=== PATIENT | female | born 1950 | race African-American/Black ===

== ENCOUNTER 2021-09-29 12:17 | Inpatient (IN) | payer MEDICARE, MEDICAID ==
[~2021-09-29 12:17] MED LIST: Iopamidol-370 76% 500 ML 1 ML ONE
[2021-09-29 13:30] LABS: #Lymphocytes 0.9 thou/uL (1.20-3.40); #Monocytes 0.8 thou/uL (0.11-0.59); #Neutrophils 3.9 thou/uL (1.40-6.50); %Basophils 0.2 % (0.0-1.0); %Eosinophils 0.2 % (0.0-10.0); %Lymphocytes 16.4 % (21.0-51.0); %Monocytes 13.5 % (0.0-10.0); %Neutrophils 69.7 % (42.0-75.0); Hemoglobin 11.4 g/dL (12.0-16.0); Mean Corpuscular HGB CONC 32.1 g/dL (32.0-36.0); Mean Corpuscular Hemoglobin 29.3 pg (27.0-31.0); Mean Corpuscular Volume 91.4 fL (78.0-98.0); Mean Platelet Volume 6.1 fL (7.4-10.4); Platelet Count 411 thou/uL (130-400); RBC Distribution Width 11.8 % (11.5-14.5); Red Blood Cell (RBC) Count 3.89 mill/uL (4.20-5.40); White Blood Cell (WBC) Count 5.5 thou/uL (4.8-10.8)
[2021-09-29] MEDS ORDERED: Ondansetron PF 4 MG/2 ML Vial ONE ×2 (13:47→19:56)
[2021-09-29 13:48] LABS: ALT (SGPT) 7 U/L (8-55); AST (SGOT) 11 U/L (5-34); Alkaline Phosphatase 67 U/L (40-110); Anion Gap 21 mmol/L (10-20); BUN (Urea Nitrogen) 47 mg/dL (9.8-20.1); Bilirubin, Total 0.6 mg/dL (0.2-1.2); Calc. Creatinine Clearance 0 mL/min (70-130); Calcium 10.2 mg/dL (7.8-10.44); Carbon Dioxide 28 mmol/L (23-31); Chloride 90 mmol/L (98-107); Estimated GFR 30; Globulin 3.7 g/dL (2.4-3.5); Glucose 155 mg/dL (83-110); Lipase 41 U/L (8-78); Potassium 4.5 mmol/L (3.5-5.1); Protein, Total 7.7 g/dL (5.8-8.1); Sodium 134 mmol/L (136-145)
[2021-09-29] MEDS ORDERED: Acetaminophen 500 MG TAB ONE (13:54)
[2021-09-29] MEDS ORDERED: Nitroglycerin 2% Ointment 1 INCH/1 GM Packet ONE (13:54)
[2021-09-29] MEDS ORDERED: Ketorolac Tromethamine 30 MG/ML VIAL ONE (13:54)
[2021-09-29] MEDS ORDERED: Piperacillin/Tazobactam 4.5 GM VIAL ONE (15:33)
[2021-09-29] MEDS ORDERED: Ondansetron PF 4 MG/2 ML Vial IVP PRN (15:43)
[2021-09-29] MEDS ORDERED: Acetaminophen 650 MG Suppository PR PRN (15:43)
[2021-09-29] MEDS ORDERED: Sodium Chloride 0.9% 1,000 ML IV SCH ×2 (15:45→17:00)
[2021-09-29 16:19] LABS: Bacteria/HPF None Seen HPF (None Seen); Bilirubin Negative (Negative); Blood, Urine Negative (Negative); Clarity Turbid (Clear); Glucose, Urine (Dipstick) Normal (Negative); Ketone, Urine Negative (Negative); Leukocyte 25 Leu/uL (Negative); Nitrite Negative (Negative); Protein, Urine (Dipstick) 50 mg/dL (Neg-Trace); Specific Gravity, Urine 1.037 (1.002-1.036); Squamous Epithelial 21-50 HPF (0-3); pH, Urine 5.5 (5.0-9.0)
[2021-09-29 17:12] LABS: Lactic Acid 2.5 mmol/L (0.5-2.2)
[2021-09-29] MEDS ORDERED: Piperacillin/Tazobactam 4.5 GM in Sodium Chloride 0.9% 100 ML IVPB SCH (18:00)
[2021-09-29] MEDS ORDERED: Ketamine 50 MG/ML (10ML VIAL) ONE (18:47)
[2021-09-29] MEDS ORDERED: fentaNYL Citrate/PF 100 MCG/2 ML SYRINGE ONE (18:47)
[2021-09-29] MEDS ORDERED: HYDROmorphone 2 MG/ML VIAL ONE ×2 (18:48→21:52)
[2021-09-29] MEDS ORDERED: Clindamycin 150 MG CAP PO SCH (19:00)
[2021-09-29] MEDS ORDERED: Bupivacaine 0.25% HCL 30 ML VIAL ONE (19:24)
[2021-09-29] MEDS ORDERED: Lidocaine 1% w/Epinephrine 1:100K 20 ML VIAL ONE (19:24)
[2021-09-29] MEDS ORDERED: SUGAMMADEX SODIUM 200 MG/2 ML VIAL ONE (19:28)
[2021-09-29] MEDS ORDERED: ePHEDrine 50 MG/ML VIAL ONE (19:56)
[2021-09-29] MEDS ORDERED: Vecuronium 10 MG VIAL ONE ×2 (19:56→22:21)
[2021-09-29] MEDS ORDERED: diphenhydrAMINE 50 MG/ML VIAL ONE (19:56)
[2021-09-29] MEDS ORDERED: Phenylephrine 10 MG/ML VIAL ONE ×6 (19:56→22:12)
[2021-09-29] MEDS ORDERED: Dexamethasone 20 MG/5 ML VIAL ONE (19:56)
[2021-09-29] MEDS ORDERED: Lidocaine 1% PF 5 ML VIAL ONE (19:56)
[2021-09-29] MEDS ORDERED: Succinylcholine 200 MG/10 ml SYRINGE FS ONE (19:56)
[2021-09-29] MEDS ORDERED: PROPOFOL 200 MG/20 ML VIAL ONE (19:56)
[2021-09-29] MEDS ORDERED: Rocuronium Bromide 10 MG/ML (10ML VIAL) ONE (19:56)
[2021-09-29] MEDS: Piperacillin/Tazobactam 3.375 GM in Sodium Chloride 0.9% 100 ML IVPB SCH (20:00)
[2021-09-29] MEDS ORDERED: ePHEDrine Sulfate 50 MG/10 ML VIAL ONE ×2 (20:36→21:18)
[2021-09-29] MEDS ORDERED: PHENYLEPHRINE-NS 100 MCG/ML 10 ML SYRINGE ONE (20:54)
[2021-09-29] MEDS ORDERED: Albumin 5% 500 ML ONE (20:59)
[2021-09-29] MEDS: Famotidine/PF 20 mg/2ml Vial SLOW IVP SCH (21:00)
[2021-09-29] MEDS ORDERED: Piperacillin/Tazobactam 3.375 GM VIAL ONE (21:27)
[2021-09-29] MEDS ORDERED: Midazolam HCl 2 mg/2 ml Vial ONE (22:34)
[2021-09-29] MEDS ORDERED: Fentanyl BOLUS 250 ML IVPB PRN (23:00)
[2021-09-29] MEDS ORDERED: DISCONTINUE PREVIOUS NARCOTIC PAIN MEDICATIONS AND BENZODIAZEPINES FS SCH (23:00)
[2021-09-29] MEDS ORDERED: NOREPINEPHRINE 8 MG/250 ML-D5W 250 ML IVPB SCH ×2 (23:00)
[2021-09-29] MEDS ORDERED: Propofol 1,000 MG/100 ML VIAL IV PRN (23:00)
[2021-09-29] MEDS ORDERED: Midazolam HCl 2 mg/2 ml Vial SLOW IVP PRN (23:00)
[2021-09-29] MEDS ORDERED: Morphine 2 MG/ML VIAL SLOW IVP PRN (23:00)
[2021-09-29] MEDS ORDERED: Propofol BOLUS 1,000 MG/100 ML VIAL IV PRN (23:00)
[2021-09-29] MEDS ORDERED: Ventilator Sedation Protocol 1 EACH FS SCH (23:00)
[2021-09-29] MEDS ORDERED: Fentanyl CADD 100 ML IV SCH (23:00)
[2021-09-29 23:36] LABS: #Lymphocytes 0.6 thou/uL (1.20-3.40); #Monocytes 0.2 thou/uL (0.11-0.59); %Basophils 0.3 % (0.0-1.0); %Eosinophils 0.1 % (0.0-10.0); %Lymphocytes 8.7 % (21.0-51.0); %Monocytes 2.6 % (0.0-10.0); %Neutrophils 88.3 % (42.0-75.0); Hemoglobin 9.3 g/dL (12.0-16.0); Mean Corpuscular HGB CONC 32.2 g/dL (32.0-36.0); Mean Corpuscular Hemoglobin 30.3 pg (27.0-31.0); Mean Corpuscular Volume 93.9 fL (78.0-98.0); Mean Platelet Volume 6.2 fL (7.4-10.4); Platelet Count 345 thou/uL (130-400); RBC Distribution Width 11.8 % (11.5-14.5); Red Blood Cell (RBC) Count 3.07 mill/uL (4.20-5.40); White Blood Cell (WBC) Count 6.8 thou/uL (4.8-10.8)
[2021-09-30 00:06] LABS: ALT (SGPT) 36 U/L (8-55); AST (SGOT) 44 U/L (5-34); Albumin 2.9 g/dL (3.4-4.8); Alkaline Phosphatase 58 U/L (40-110); Anion Gap 14 mmol/L (10-20); BUN (Urea Nitrogen) 36 mg/dL (9.8-20.1); Bilirubin, Total 0.7 mg/dL (0.2-1.2); Calc. Creatinine Clearance 0 mL/min (70-130); Calcium 7.5 mg/dL (7.8-10.44); Carbon Dioxide 19 mmol/L (23-31); Chloride 105 mmol/L (98-107); Estimated GFR 47; Globulin 2.9 g/dL (2.4-3.5); Glucose 204 mg/dL (83-110); Magnesium 1.7 mg/dL (1.6-2.6); Phosphorus 4.3 mg/dL (2.3-4.7); Potassium 3.1 mmol/L (3.5-5.1); Protein, Total 5.8 g/dL (5.8-8.1); Sodium 135 mmol/L (136-145)
[2021-09-30] MEDS ORDERED: Electrolyte Replacement Protocol FS PRN (00:45)
[2021-09-30] MEDS ORDERED: Magnesium 2 GM/50 ML(in water) 2 GM in Premix Bag 1 BAG IVPB SCH (01:00)
[2021-09-30] MEDS: Sodium Chloride 0.9% 1,000 ML IV SCH ×3 (01:30→20:56)
[2021-09-30] MEDS: Potassium Chloride 20 MEQ in Premix Bag 1 BAG IVPB SCH ×2 (02:13→04:11)
[2021-09-30] MEDS: Piperacillin/Tazobactam 3.375 GM in Sodium Chloride 0.9% 100 ML IVPB SCH (04:11)
[2021-09-30] MEDS ORDERED: Clindamycin 150 MG CAP PO SCH (06:00)
[2021-09-30 06:36] LABS: #Lymphocytes 0.5 thou/uL (1.20-3.40); #Monocytes 0.4 thou/uL (0.11-0.59); #Neutrophils 3.8 thou/uL (1.40-6.50); %Basophils 0.1 % (0.0-1.0); %Eosinophils 0.3 % (0.0-10.0); %Lymphocytes 10.2 % (21.0-51.0); %Monocytes 8.2 % (0.0-10.0); %Neutrophils 81.2 % (42.0-75.0); Hemoglobin 9.4 g/dL (12.0-16.0); Mean Corpuscular Hemoglobin 30.8 pg (27.0-31.0); Mean Corpuscular Volume 93.2 fL (78.0-98.0); Mean Platelet Volume 6.2 fL (7.4-10.4); Platelet Count 308 thou/uL (130-400); RBC Distribution Width 11.7 % (11.5-14.5); Red Blood Cell (RBC) Count 3.06 mill/uL (4.20-5.40); White Blood Cell (WBC) Count 4.7 thou/uL (4.8-10.8)
[2021-09-30 07:02] LABS: Anion Gap 16 mmol/L (10-20); BUN (Urea Nitrogen) 32 mg/dL (9.8-20.1); Calc. Creatinine Clearance 69 mL/min (70-130); Calcium 7.9 mg/dL (7.8-10.44); Carbon Dioxide 17 mmol/L (23-31); Chloride 105 mmol/L (98-107); Estimated GFR 61; Glucose 174 mg/dL (83-110); Potassium 4.1 mmol/L (3.5-5.1); Sodium 134 mmol/L (136-145)
[2021-09-30 07:06] LABS: Actual Bicarbonate (HCO3a) 18.4 mEq/L (22-28); Base Excess (BEa) -4.9 mEq/L (-2.0 to +3.0); CO2 Tension 28.5 mmHg (35.0-45.0); Calcium, Ionized (arterial) 1.08 mmol/L (1.12-1.30); Carboxyhemoglobin (COHb) 0.3 gm% (0.0-3.0); Hemoglobin (Hb) 10.1 g/dL (12.0-16.0); O2 Tension (PaO2), arterial 256.4 mmHg (> 70.0); Potassium - ABG Lab 3.93 mmol/L (3.70-5.30); pH, Arterial 7.43 (7.35-7.45)
[2021-09-30 07:07] LABS: Puncture Site Arterial Line
[2021-09-30 07:08] LABS: ALV-art Gradient 278.375 mmHg (0-20)
[2021-09-30] MEDS ORDERED: Meropenem 1 GM in Sodium Chloride 0.9% 100 ML IVPB SCH ×2 (08:00→14:00)
[2021-09-30] MEDS ORDERED: Lidocaine 1% (PF) 30 ML VIAL ONE (10:53)
[2021-09-30] MEDS ORDERED: Fentanyl 100 MCG/2 ML VIAL ONE (11:00)
[2021-09-30] MEDS ORDERED: PROPOFOL 0 ML ONE (11:13)
[2021-09-30] MEDS: Meropenem 1 GM in Sodium Chloride 0.9% 100 ML IVPB SCH (17:56)
[2021-09-30] MEDS: Famotidine/PF 20 mg/2ml Vial SLOW IVP SCH (20:56)
[2021-10-01] MEDS: Meropenem 1 GM in Sodium Chloride 0.9% 100 ML IVPB SCH ×3 (00:56→16:34)
[2021-10-01 04:35] LABS: Hemoglobin 11.1 g/dL (12.0-16.0); Mean Corpuscular HGB CONC 29.6 g/dL (32.0-36.0); Mean Corpuscular Hemoglobin 28.4 pg (27.0-31.0); Mean Corpuscular Volume 95.9 fL (78.0-98.0); Mean Platelet Volume 6.8 fL (7.4-10.4); Platelet Count 195 thou/uL (130-400); RBC Distribution Width 12.1 % (11.5-14.5)
[2021-10-01 04:36] LABS: Band 24 % (5-11); Hypochromia SLIGHT = 6-15 cells (100X) (0-5/hpf); Lymphocytes 20 % (21-51); MDiff Complete? YES; Monocytes 6 % (0-10); Neutrophil 50 % (42-75); Platelet Morphology Comment Appears Adequate
[2021-10-01] MEDS: Sodium Chloride 0.9% 1,000 ML IV SCH ×2 (07:00→16:33)
[2021-10-01 08:30] LABS: Anion Gap 14 mmol/L (10-20); BUN (Urea Nitrogen) 28 mg/dL (9.8-20.1); Calc. Creatinine Clearance 79 mL/min (70-130); Calcium 8.2 mg/dL (7.8-10.44); Carbon Dioxide 21 mmol/L (23-31); Chloride 106 mmol/L (98-107); Estimated GFR 72; Glucose 105 mg/dL (83-110); Potassium 4.2 mmol/L (3.5-5.1); Sodium 137 mmol/L (136-145)
[2021-10-01] MEDS ORDERED: Enoxaparin Sodium 30 MG/0.3 ML SYRINGE SC SCH (10:30)
[2021-10-01] MEDS: Famotidine/PF 20 mg/2ml Vial SLOW IVP SCH (20:27)
[2021-10-01] MEDS: Dextrose 5 %-0.45 % NaCl 1,000 ML IV SCH (21:45)
[2021-10-02] MEDS: Meropenem 1 GM in Sodium Chloride 0.9% 100 ML IVPB SCH ×3 (01:45→17:58)
[2021-10-02 07:50] LABS: #Monocytes 0.5 thou/uL (0.11-0.59); #Neutrophils 2.8 thou/uL (1.40-6.50); %Basophils 0.2 % (0.0-1.0); %Lymphocytes 23.2 % (21.0-51.0); %Monocytes 10.9 % (0.0-10.0); %Neutrophils 64.6 % (42.0-75.0); Hemoglobin 9.3 g/dL (12.0-16.0); Mean Corpuscular HGB CONC 32.1 g/dL (32.0-36.0); Mean Corpuscular Hemoglobin 30.7 pg (27.0-31.0); Mean Corpuscular Volume 95.5 fL (78.0-98.0); Mean Platelet Volume 7.2 fL (7.4-10.4); Platelet Count 277 thou/uL (130-400); RBC Distribution Width 11.7 % (11.5-14.5); Red Blood Cell (RBC) Count 3.03 mill/uL (4.20-5.40); White Blood Cell (WBC) Count 4.3 thou/uL (4.8-10.8)
[2021-10-02 07:52] LABS: Anion Gap 14 mmol/L (10-20); BUN (Urea Nitrogen) 21 mg/dL (9.8-20.1); Calc. Creatinine Clearance 100 mL/min (70-130); Carbon Dioxide 19 mmol/L (23-31); Chloride 110 mmol/L (98-107); Estimated GFR 91; Glucose 102 mg/dL (83-110); Potassium 3.8 mmol/L (3.5-5.1); Sodium 139 mmol/L (136-145)
[2021-10-02] MEDS: Dextrose 5 %-0.45 % NaCl 1,000 ML IV SCH ×2 (10:09→17:58)
[2021-10-02] MEDS: Enoxaparin Sodium 30 MG/0.3 ML SYRINGE SC SCH (10:09)
[2021-10-02] MEDS: Famotidine/PF 20 mg/2ml Vial SLOW IVP SCH (22:01)
[2021-10-03] MEDS: Meropenem 1 GM in Sodium Chloride 0.9% 100 ML IVPB SCH ×3 (00:16→17:22)
[2021-10-03] MEDS: Dextrose 5 %-0.45 % NaCl 1,000 ML IV SCH ×2 (03:50→15:26)
[2021-10-03] MEDS: Enoxaparin Sodium 30 MG/0.3 ML SYRINGE SC SCH (09:00)
[2021-10-03 11:16] LABS: #Eosinphils 0.1 thou/uL (0.0-0.7); #Lymphocytes 1.2 thou/uL (1.20-3.40); #Monocytes 0.8 thou/uL (0.11-0.59); #Neutrophils 4.9 thou/uL (1.40-6.50); %Basophils 0.4 % (0.0-1.0); %Eosinophils 1.5 % (0.0-10.0); %Lymphocytes 17.4 % (21.0-51.0); %Monocytes 11.9 % (0.0-10.0); %Neutrophils 68.8 % (42.0-75.0); Hemoglobin 10.1 g/dL (12.0-16.0); Mean Corpuscular HGB CONC 31.7 g/dL (32.0-36.0); Mean Corpuscular Hemoglobin 30.8 pg (27.0-31.0); Mean Corpuscular Volume 97.1 fL (78.0-98.0); Mean Platelet Volume 7.1 fL (7.4-10.4); Platelet Count 299 thou/uL (130-400); RBC Distribution Width 11.9 % (11.5-14.5); Red Blood Cell (RBC) Count 3.28 mill/uL (4.20-5.40); White Blood Cell (WBC) Count 7.1 thou/uL (4.8-10.8)
[2021-10-03 11:35] LABS: Anion Gap 13 mmol/L (10-20); BUN (Urea Nitrogen) 17 mg/dL (9.8-20.1); Calc. Creatinine Clearance 105 mL/min (70-130); Calcium 8.1 mg/dL (7.8-10.44); Carbon Dioxide 22 mmol/L (23-31); Chloride 109 mmol/L (98-107); Estimated GFR 93; Glucose 101 mg/dL (83-110); Potassium 3.6 mmol/L (3.5-5.1); Sodium 140 mmol/L (136-145)
[2021-10-03] MEDS: Famotidine/PF 20 mg/2ml Vial SLOW IVP SCH (21:28)
[2021-10-04] MEDS: Meropenem 1 GM in Sodium Chloride 0.9% 100 ML IVPB SCH ×3 (00:19→17:40)
[2021-10-04] MEDS: Dextrose 5 %-0.45 % NaCl 1,000 ML IV SCH ×2 (00:19→13:47)
[2021-10-04 06:02] LABS: #Eosinphils 0.1 thou/uL (0.0-0.7); #Lymphocytes 1.5 thou/uL (1.20-3.40); #Monocytes 0.9 thou/uL (0.11-0.59); #Neutrophils 4.5 thou/uL (1.40-6.50); %Basophils 0.2 % (0.0-1.0); %Eosinophils 1.9 % (0.0-10.0); %Monocytes 12.6 % (0.0-10.0); %Neutrophils 63.5 % (42.0-75.0); Hemoglobin 9.4 g/dL (12.0-16.0); Mean Corpuscular HGB CONC 31.4 g/dL (32.0-36.0); Mean Corpuscular Hemoglobin 29.9 pg (27.0-31.0); Mean Corpuscular Volume 95.5 fL (78.0-98.0); Mean Platelet Volume 7.4 fL (7.4-10.4); Platelet Count 298 thou/uL (130-400); RBC Distribution Width 11.9 % (11.5-14.5); Red Blood Cell (RBC) Count 3.13 mill/uL (4.20-5.40)
[2021-10-04 06:15] LABS: Anion Gap 13 mmol/L (10-20); BUN (Urea Nitrogen) 17 mg/dL (9.8-20.1); Calc. Creatinine Clearance 100 mL/min (70-130); Calcium 8.1 mg/dL (7.8-10.44); Carbon Dioxide 19 mmol/L (23-31); Chloride 110 mmol/L (98-107); Estimated GFR 91; Glucose 103 mg/dL (83-110); Sodium 138 mmol/L (136-145)
[2021-10-04] MEDS: Enoxaparin Sodium 30 MG/0.3 ML SYRINGE SC SCH (08:38)
[2021-10-04 16:39] VITALS: BMI 31.4
[2021-10-04] MEDS: Famotidine/PF 20 mg/2ml Vial SLOW IVP SCH (20:10)
[2021-10-05] MEDS: Meropenem 1 GM in Sodium Chloride 0.9% 100 ML IVPB SCH ×2 (03:02→05:35)
[2021-10-05] MEDS: Dextrose 5 %-0.45 % NaCl 1,000 ML IV SCH ×2 (03:02→19:23)
[2021-10-05] MEDS ORDERED: Enoxaparin Sodium 40 MG/0.4 ML SYRINGE SC SCH (09:00)
[2021-10-05] MEDS ORDERED: Meropenem 1 GM in Sodium Chloride 0.9% 100 ML IVPB SCH (14:00)
[2021-10-05 14:39] LABS: Actual Bicarbonate (HCO3a) 18.9 mEq/L (22-28); Analyzer IN Cardio OR; Base Excess (BEa) -7.9 mEq/L (-2.0 to +3.0); CO2 Tension 43.9 mmHg (35.0-45.0); Calcium, Ionized (arterial) 1.03 mmol/L (1.12-1.30); Carboxyhemoglobin (COHb) 0.3 gm% (0.0-3.0); O2 Tension (PaO2), arterial 65.4 mmHg (> 70.0); Potassium - ABG Lab 2.98 mmol/L (3.70-5.30)
[2021-10-05 14:41] LABS: Actual Bicarbonate (HCO3a) 19.4 mEq/L (22-28); Analyzer IN Cardio OR; Base Excess (BEa) -8.2 mEq/L (-2.0 to +3.0); CO2 Tension 49.8 mmHg (35.0-45.0); Calcium, Ionized (arterial) 1.03 mmol/L (1.12-1.30); Carboxyhemoglobin (COHb) 0.3 gm% (0.0-3.0); Hemoglobin (Hb) 9.2 g/dL (12.0-16.0); O2 Tension (PaO2), arterial 73.6 mmHg (> 70.0); Potassium - ABG Lab 2.93 mmol/L (3.70-5.30)
[2021-10-05 14:55] LABS: Puncture Site Arterial Line; pH, Arterial 7.25 (7.35-7.45)
[2021-10-05 14:56] LABS: Puncture Site Arterial Line; pH, Arterial 7.21 (7.35-7.45)
[2021-10-05 21:07] VITALS: BP 110/70; TEMP 98.7
== END 2021-10-05 21:30 | disposition home health service (06) | DRG 329 ==
LOC: ERS 12:17 → SURG A 15:17 → CCU 22:13 → SJJU 10-01 18:06
PROVIDERS: ADMIT Internal Medicine; ATTEND Internal Medicine
PROC: 0DB80ZZ Excision of Small Intestine, Open Approach (ICD-10-PCS; principal; 2021-09-29)
PROC: 0DNB4ZZ Release Ileum, Percutaneous Endoscopic Approach (ICD-10-PCS; 2021-09-29)
PROC: 5A1945Z Respiratory Ventilation, 24-96 Consecutive Hours (ICD-10-PCS; 2021-09-29)
PROC: 3E033XZ Introduction of Vasopressor into Peripheral Vein, Percutaneous Approach (ICD-10-PCS; 2021-09-29)
PROC: 0D9670Z Drainage of Stomach with Drainage Device, Via Natural or Artificial Opening (ICD-10-PCS; 2021-09-29)
PROC: 0BCJ8ZZ Extirpation of Matter from Left Lower Lung Lobe, Via Natural or Artificial Opening Endoscopic (ICD-10-PCS; 2021-09-30)
PROC: 0BCC8ZZ Extirpation of Matter from Right Upper Lung Lobe, Via Natural or Artificial Opening Endoscopic (ICD-10-PCS; 2021-09-30)
PROC: 0BCG8ZZ Extirpation of Matter from Left Upper Lung Lobe, Via Natural or Artificial Opening Endoscopic (ICD-10-PCS; 2021-09-30)
PROC: 0BCD8ZZ Extirpation of Matter from Right Middle Lung Lobe, Via Natural or Artificial Opening Endoscopic (ICD-10-PCS; 2021-09-30)
PROC: 0BCF8ZZ Extirpation of Matter from Right Lower Lung Lobe, Via Natural or Artificial Opening Endoscopic (ICD-10-PCS; 2021-09-30)
DX: K56.50 Intestinal adhesions [bands], unspecified as to partial versus complete obstruction (principal); L89.153 Pressure ulcer of sacral region, stage 3; J69.0 Pneumonitis due to inhalation of food and vomit; J96.01 Acute respiratory failure with hypoxia; J98.11 Atelectasis; R47.01 Aphasia; M86.8X7 Other osteomyelitis, ankle and foot; N17.9 Acute kidney failure, unspecified; E44.0 Moderate protein-calorie malnutrition; Z66 Do not resuscitate; Z51.5 Encounter for palliative care; Z20.822 Contact with and (suspected) exposure to COVID-19; K56.2 Volvulus; F03.90 Unspecified dementia, unspecified severity, without behavioral disturbance, psychotic disturbance, mood disturbance, and anxiety; I95.89 Other hypotension; I12.9 Hypertensive chronic kidney disease with stage 1 through stage 4 chronic kidney disease, or unspecified chronic kidney disease; E11.69 Type 2 diabetes mellitus with other specified complication; E03.9 Hypothyroidism, unspecified; D63.1 Anemia in chronic kidney disease; N18.9 Chronic kidney disease, unspecified; E11.22 Type 2 diabetes mellitus with diabetic chronic kidney disease; E11.621 Type 2 diabetes mellitus with foot ulcer; L97.529 Non-pressure chronic ulcer of other part of left foot with unspecified severity; R62.7 Adult failure to thrive; L89.629 Pressure ulcer of left heel, unspecified stage; E11.649 Type 2 diabetes mellitus with hypoglycemia without coma; R22.32 Localized swelling, mass and lump, left upper limb; Z74.01 Bed confinement status; Z68.31 Body mass index [BMI] 31.0-31.9, adult; Z79.899 Other long term (current) drug therapy; Z85.3 Personal history of malignant neoplasm of breast; Z90.11 Acquired absence of right breast and nipple; Z78.1 Physical restraint status; Z79.82 Long term (current) use of aspirin
CPT/HCPCS: 31624; 36415; 36416; 51701; 71045; 74018; 74019; 74177; 80048; 80053; 81003; 81015; 82805; 83605; 83690; 83735; 84100; 84484; 85025; 85652; 86140; 87040; 87070; 87086; 87205; 88307; 93005; 94002; 94003; 96361; 96365; 96375; 97139; C1776; J1100; J1170; J1200; J1650; J1885; J2001; J2185; J2250; J2270; J2370; J2405; J2543; J2704; J3010; J3475; J3480; J3490; J7042; J7050; P9045; Q9967; S0020; S0028; U0003; U0005

== ENCOUNTER 2022-05-06 01:11 | Emergency (ER) | payer MEDICARE, MEDICAID ==
[2022-05-06 02:37] LABS: #Basophils 0.1 thou/uL (0.0-0.2); #Eosinphils 0.1 thou/uL (0.0-0.7); #Lymphocytes 0.8 thou/uL (1.20-3.40); #Monocytes 0.4 thou/uL (0.11-0.59); #Neutrophils 3.3 thou/uL (1.40-6.50); %Basophils 1.1 % (0.0-1.0); %Eosinophils 2.2 % (0.0-10.0); %Lymphocytes 16.8 % (21.0-51.0); %Monocytes 8.8 % (0.0-10.0); Hemoglobin 12.2 g/dL (12.0-16.0); Mean Corpuscular HGB CONC 34.9 g/dL (32.0-36.0); Mean Corpuscular Hemoglobin 32.5 pg (27.0-31.0); Mean Corpuscular Volume 92.9 fl (78.0-98.0); Mean Platelet Volume 6.4 fL (7.4-10.4); Platelet Count 287 10x3/uL (130-400); RBC Distribution Width 11.3 % (11.5-14.5); Red Blood Cell (RBC) Count 3.75 mill/uL (4.20-5.40); White Blood Cell (WBC) Count 4.6 10x3/uL (4.8-10.8)
[2022-05-06 02:59] LABS: ALT (SGPT) 16 U/L (8-55); AST (SGOT) 16 U/L (5-34); Albumin 3.5 g/dL (3.4-4.8); Alkaline Phosphatase 54 U/L (40-110); Anion Gap 13 mmol/L (10-20); BUN (Urea Nitrogen) 11 mg/dL (9.8-20.1); Bilirubin, Total 0.5 mg/dL (0.2-1.2); Calc. Creatinine Clearance 0 mL/min (70-130); Calcium 9.2 mg/dL (7.8-10.44); Carbon Dioxide 24 mmol/L (23-31); Chloride 95 mmol/L (98-107); Estimated GFR 88; Globulin 3.2 g/dL (2.4-3.5); Glucose 104 mg/dL (83-110); Potassium 3.9 mmol/L (3.5-5.1); Protein, Total 6.7 g/dL (5.8-8.1); Sodium 128 mmol/L (136-145)
[2022-05-06 03:12] LABS: Actual Bicarbonate (HCO3v) 27 mEq/L (22-28); Base Excess 2.6 mEq/L (-2.0 to +3.0); Calcium, Ionized (venous) 1.13 mmol/L (1.16-1.32); Chloride (VBG) 93 mmol/L (98-106); Hemoglobin (Hb) 12.6 g/dL (11.7-16.1); Potassium (VBG) 3.84 mmol/L (3.70-5.30); Sodium 130.8 mmol/L (133-146); pH (venous) 7.43 (7.32-7.43)
== END 2022-05-06 05:32 | disposition home or self-care (01) ==
LOC: ERS 01:11
DX: R56.9 Unspecified convulsions (principal); E11.9 Type 2 diabetes mellitus without complications; I10 Essential (primary) hypertension
CPT/HCPCS: 36415; 70450; 71045; 80053; 82140; 82805; 84146; 84443; 85025; 93005

== ENCOUNTER 2022-07-19 20:16 | Inpatient (IN) | payer MEDICARE, MEDICAID ==
[2022-07-19 21:14] LABS: #Basophils 0.1 thou/uL (0.0-0.2); #Lymphocytes 0.9 thou/uL (1.20-3.40); #Monocytes 0.4 thou/uL (0.11-0.59); #Neutrophils 2.9 thou/uL (1.40-6.50); %Basophils 1.4 % (0.0-1.0); %Eosinophils 0.7 % (0.0-10.0); %Lymphocytes 21.5 % (21.0-51.0); %Monocytes 9.4 % (0.0-10.0); Hemoglobin 11.3 g/dL (12.0-16.0); Mean Corpuscular HGB CONC 33.3 g/dL (32.0-36.0); Mean Corpuscular Hemoglobin 30.8 pg (27.0-31.0); Mean Corpuscular Volume 92.3 fl (78.0-98.0); Mean Platelet Volume 6.6 fL (7.4-10.4); Platelet Count 286 10x3/uL (130-400); RBC Distribution Width 11.2 % (11.5-14.5); Red Blood Cell (RBC) Count 3.68 mill/uL (4.20-5.40); White Blood Cell (WBC) Count 4.4 10x3/uL (4.8-10.8)
[2022-07-19 21:35] LABS: Anion Gap 15 mmol/L (10-20); BUN (Urea Nitrogen) 11 mg/dL (9.8-20.1); Calc. Creatinine Clearance 0 mL/min (70-130); Carbon Dioxide 24 mmol/L (23-31); Chloride 96 mmol/L (98-107); Potassium 4.1 mmol/L (3.5-5.1); Sodium 131 mmol/L (136-145)
[2022-07-19 21:36] LABS: ALT (SGPT) 11 U/L (8-55); AST (SGOT) 14 U/L (5-34); Albumin 3.5 g/dL (3.4-4.8); Alkaline Phosphatase 58 U/L (40-110); Bilirubin, Total 0.5 mg/dL (0.2-1.2); CK (CPK) 82 U/L (29-168); Estimated GFR 65; Globulin 3.1 g/dL (2.4-3.5); Glucose 101 mg/dL (83-110); Magnesium 2.4 mg/dL (1.6-2.6); Protein, Total 6.6 g/dL (5.8-8.1)
[2022-07-19] MEDS ORDERED: levETIRAcetam 500 MG/5 ML VIAL ONE (21:59)
[2022-07-19] MEDS ORDERED: LORazepam 2 MG/ML SYR.(CARPUJECT) ONE (21:59)
[2022-07-19 22:24] LABS: Bilirubin Negative (Negative); Blood, Urine 3+ (Negative); Clarity Turbid (Clear); Glucose, Urine (Dipstick) Normal (Negative); Ketone, Urine Negative (Negative); Leukocyte 250 Leu/uL (Negative); Nitrite Negative (Negative); Protein, Urine (Dipstick) Negative (Neg-Trace); Renal Epithelial 0-3 HPF (None Seen); Specific Gravity, Urine 1.008 (1.002-1.036); Urobilinogen Normal mg/dL (Less than 2); WBC/HPF 21-50 HPF (0-3)
[2022-07-19 22:25] LABS: Bacteria/HPF 1+ HPF (None Seen)
[2022-07-19 22:30] LABS: Amphetamine Not Detected (NotDetected); Barbiturates Screen Not Detected (NotDetected); Benzodiazepine Screen Not Detected (NotDetected); Cocaine Metabolite Screen Not Detected (NotDetected); Methadone Not Detected (NotDetected); Methamphetamine Not Detected (NotDetected); Opiate Screen Not Detected (NotDetected); Oxycodone Screen Not Detected (NotDetected); Phencyclidine (PCP) Not Detected (NotDetected); THC/Cannabinoid Screen Not Detected (NotDetected); Tricyclic Screen Not Detected (NotDetected)
[2022-07-19] MEDS ORDERED: hydrALAZINE 20 MG/ML VIAL ONE (22:31)
[2022-07-19] MEDS ORDERED: Lorazepam 2 MG/ML VIAL SLOW IVP PRN (22:53)
[2022-07-19] MEDS ORDERED: Ondansetron ODT 4 MG TAB PO PRN (22:53)
[2022-07-19] MEDS ORDERED: Acetaminophen 650 MG Suppository PR PRN (22:53)
[2022-07-19] MEDS ORDERED: Acetaminophen 325 MG TAB PO PRN (22:53)
[2022-07-19] MEDS ORDERED: Ondansetron PF 4 MG/2 ML Vial IVP PRN (22:53)
[2022-07-19] MEDS ORDERED: Amlodipine 5 MG TAB PO SCH (23:15)
[2022-07-20 00:35] VITALS: BMI 23.3
[2022-07-20] MEDS: cefTRIAXone\\ROCEPHIN 1 GM in Sodium Chloride 0.9% 100 ML IVPB SCH ×2 (00:53→23:30)
[2022-07-20 05:10] LABS: #Lymphocytes 1.1 thou/uL (1.20-3.40); #Monocytes 0.5 thou/uL (0.11-0.59); #Neutrophils 2.9 thou/uL (1.40-6.50); %Eosinophils 0.5 % (0.0-10.0); %Lymphocytes 24.2 % (21.0-51.0); %Monocytes 11.5 % (0.0-10.0); %Neutrophils 62.8 % (42.0-75.0); Hemoglobin 10.3 g/dL (12.0-16.0); Mean Corpuscular HGB CONC 34.6 g/dL (32.0-36.0); Mean Corpuscular Hemoglobin 31.9 pg (27.0-31.0); Mean Corpuscular Volume 92.4 fl (78.0-98.0); Mean Platelet Volume 6.8 fL (7.4-10.4); Platelet Count 252 10x3/uL (130-400); RBC Distribution Width 11.2 % (11.5-14.5); Red Blood Cell (RBC) Count 3.22 mill/uL (4.20-5.40); White Blood Cell (WBC) Count 4.5 10x3/uL (4.8-10.8)
[2022-07-20 05:27] LABS: Anion Gap 11 mmol/L (10-20); BUN (Urea Nitrogen) 9 mg/dL (9.8-20.1); Calc. Creatinine Clearance 65 mL/min (70-130); Calcium 8.6 mg/dL (7.8-10.44); Carbon Dioxide 24 mmol/L (23-31); Chloride 99 mmol/L (98-107); Estimated GFR 74; Glucose 81 mg/dL (83-110); Magnesium 2.3 mg/dL (1.6-2.6); Potassium 3.4 mmol/L (3.5-5.1); Sodium 131 mmol/L (136-145)
[2022-07-20] MEDS ORDERED: ALPRAZolam 0.25 MG TAB PO PRN (11:59)
[2022-07-20] MEDS ORDERED: Cyanocobalamin (Vitamin B-12) 1,000 MCG TAB PO SCH (13:00)
[2022-07-20] MEDS: Cyanocobalamin (Vitamin B-12) 1,000 MCG TAB PO SCH (16:13)
[2022-07-20] MEDS: Amlodipine 5 MG TAB PO SCH (20:29)
[2022-07-20] MEDS: Donepezil HCl 5 MG TAB PO SCH (20:29)
[2022-07-21 04:17] LABS: #Basophils 0.1 thou/uL (0.0-0.2); #Eosinphils 0.1 thou/uL (0.0-0.7); #Lymphocytes 1.1 thou/uL (1.20-3.40); #Monocytes 0.6 thou/uL (0.11-0.59); #Neutrophils 2.6 thou/uL (1.40-6.50); %Basophils 1.6 % (0.0-1.0); %Eosinophils 1.3 % (0.0-10.0); %Lymphocytes 25.6 % (21.0-51.0); %Monocytes 12.6 % (0.0-10.0); %Neutrophils 58.9 % (42.0-75.0); Hemoglobin 9.9 g/dL (12.0-16.0); Mean Corpuscular HGB CONC 33.9 g/dL (32.0-36.0); Mean Corpuscular Hemoglobin 31.9 pg (27.0-31.0); Mean Corpuscular Volume 93.9 fl (78.0-98.0); Platelet Count 231 10x3/uL (130-400); RBC Distribution Width 11.3 % (11.5-14.5); White Blood Cell (WBC) Count 4.4 10x3/uL (4.8-10.8)
[2022-07-21 04:35] LABS: Anion Gap 9 mmol/L (10-20); BUN (Urea Nitrogen) 5 mg/dL (9.8-20.1); Calc. Creatinine Clearance 72 mL/min (70-130); Calcium 8.6 mg/dL (7.8-10.44); Carbon Dioxide 25 mmol/L (23-31); Chloride 105 mmol/L (98-107); Estimated GFR 85; Glucose 65 mg/dL (83-110); Potassium 3.1 mmol/L (3.5-5.1); Sodium 136 mmol/L (136-145)
[2022-07-21] MEDS: Levothyroxine Sodium 75 MCG TAB PO SCH (05:42)
[2022-07-21] MEDS ORDERED: Potassium Chloride 20 MEQ TAB PO SCH (08:30)
[2022-07-21] MEDS: Cholecalciferol 1,000 UNITS (25 MCG) TAB PO SCH (08:58)
[2022-07-21] MEDS: risperiDONE 0.25 MG TAB PO SCH (08:59)
[2022-07-21] MEDS: Aspirin 81 mg Enteric Coated Tablet PO SCH (08:59)
[2022-07-21] MEDS ORDERED: Magnevist 469MG/ML 20 ML VIAL ONE (10:44)
[2022-07-21] MEDS: Potassium Chloride 20 MEQ TAB PO SCH (16:13)
[2022-07-21] MEDS: Donepezil HCl 5 MG TAB PO SCH (20:54)
[2022-07-21] MEDS: Amlodipine 5 MG TAB PO SCH (20:54)
[2022-07-21] MEDS: cefTRIAXone\\ROCEPHIN 1 GM in Sodium Chloride 0.9% 100 ML IVPB SCH (23:30)
[2022-07-22] MEDS: Levothyroxine Sodium 75 MCG TAB PO SCH (05:44)
[2022-07-22 07:27] VITALS: BP 127/60; TEMP 97.2
[2022-07-22] MEDS: Potassium Chloride 20 MEQ TAB PO SCH (09:07)
[2022-07-22] MEDS: Aspirin 81 mg Enteric Coated Tablet PO SCH (09:07)
[2022-07-22] MEDS: risperiDONE 0.25 MG TAB PO SCH (09:07)
[2022-07-22] MEDS: Cholecalciferol 1,000 UNITS (25 MCG) TAB PO SCH (09:07)
[2022-07-22] MEDS: Cyanocobalamin (Vitamin B-12) 1,000 MCG TAB PO SCH (09:07)
== END 2022-07-22 13:32 | disposition home or self-care (01) | DRG 690 ==
LOC: ERS 20:16 → 2NO 22:12 → OBSVTOIN 07-20 18:16
PROVIDERS: ADMIT Family Medicine; ATTEND Family Medicine
DX: N30.90 Cystitis, unspecified without hematuria (principal); E87.1 Hypo-osmolality and hyponatremia; G91.2 (Idiopathic) normal pressure hydrocephalus; F03.90 Unspecified dementia, unspecified severity, without behavioral disturbance, psychotic disturbance, mood disturbance, and anxiety; D63.8 Anemia in other chronic diseases classified elsewhere; I10 Essential (primary) hypertension; Z85.3 Personal history of malignant neoplasm of breast; Z79.82 Long term (current) use of aspirin; Z79.890 Hormone replacement therapy; Z90.10 Acquired absence of unspecified breast and nipple; Z79.899 Other long term (current) drug therapy
CPT/HCPCS: 36415; 51701; 70450; 70553; 71045; 80048; 80053; 80306; 81003; 81015; 82274; 82550; 83605; 83735; 84146; 85025; 87040; 87086; 93005; 95712; 95819; 95957; 96374; 96375; 97139; J0360; J0696; J1953; J2060; J3490

== ENCOUNTER 2022-09-05 09:13 | Outpatient (CLI) | payer MEDICARE, MEDICAID | END 2022-09-05 09:14 | disposition home or self-care (01) | LOC: SCSRAD 09:13 → BICRAD 09:14 | PROVIDERS: ATTEND Family Medicine | DX: L89.153 Pressure ulcer of sacral region, stage 3 (principal); M47.816 Spondylosis without myelopathy or radiculopathy, lumbar region; M47.817 Spondylosis without myelopathy or radiculopathy, lumbosacral region; M46.1 Sacroiliitis, not elsewhere classified; M16.0 Bilateral primary osteoarthritis of hip | CPT/HCPCS: 72220 ==

== ENCOUNTER 2023-01-26 03:03 | Inpatient (IN) | payer MEDICARE, SELFPAY ==
[2023-01-26 04:09] LABS: Bilirubin Negative (Negative); Blood, Urine Negative (Negative); CAUTI Indications for Culture Alt mental st,lethar; Clarity Clear (Clear); Glucose, Urine (Dipstick) Normal (Negative); Ketone, Urine Negative (Negative); Leukocyte 500 Leu/uL (Negative); Nitrite Negative (Negative); Protein, Urine (Dipstick) Negative (Neg-Trace); RBC/HPF 0-3 HPF (0-3); Squamous Epithelial 0-3 HPF (0-3); Urobilinogen Normal mg/dL (Less than 2)
[2023-01-26 04:17] LABS: Bacteria/HPF 1+ HPF (None Seen)
[2023-01-26 04:18] LABS: Urine Culture Reflex Yes Yes
[2023-01-26 04:39] LABS: Hematocrit 37.8 % (36.0-47.0); Hemoglobin 12.3 g/dL (12.0-16.0); Mean Corpuscular HGB CONC 32.5 g/dL (32.0-36.0); Mean Corpuscular Hemoglobin 30.5 pg (27.0-31.0); Mean Corpuscular Volume 93.8 fl (78.0-98.0); Mean Platelet Volume 10.3 fL (7.4-10.4); Platelet Count 149 10x3/uL (130-400); RBC Distribution Width 13.2 % (11.5-14.5); Red Blood Cell (RBC) Count 4.03 mill/uL (4.20-5.40); White Blood Cell (WBC) Count 7.5 10x3/uL (4.8-10.8)
[2023-01-26 04:42] LABS: SARS-CoV-2 NAA Rapid Test Not Detected (NotDetected)
[2023-01-26 04:43] LABS: Delete Auto Diff?? YES; Manual Diff?? YES
[2023-01-26 05:05] LABS: ALT (SGPT) 780 U/L (8-55); AST (SGOT) 598 U/L (5-34); Albumin 3.3 g/dL (3.4-4.8); Alkaline Phosphatase 222 U/L (40-110); Anion Gap 10 mmol/L (10-20); BUN (Urea Nitrogen) 22 mg/dL (9.8-20.1); Bilirubin, Total 0.8 mg/dL (0.2-1.2); Calc. Creatinine Clearance 0 mL/min (70-130); Calcium 8.6 mg/dL (7.8-10.44); Carbon Dioxide 26 mmol/L (23-31); Chloride 101 mmol/L (98-107); Estimated GFR 81; Globulin 2.5 g/dL (2.4-3.5); Glucose 100 mg/dL (83-110); Potassium 4.2 mmol/L (3.5-5.1); Protein, Total 5.8 g/dL (5.8-8.1); Sodium 133 mmol/L (136-145)
[2023-01-26 05:08] LABS: Troponin I Less than 0.010 ng/mL (< 0.028)
[2023-01-26] MEDS ORDERED: cefTRIAXone (ROCEPHIN) 2 GM VIAL ONE (05:15)
[2023-01-26] MEDS ORDERED: Sodium Chloride 0.9% 100 ML ONE (05:15)
[2023-01-26 05:53] LABS: Band 28 % (5-11); CellaVision Operator ID LAB.GE; Eosinophils 10 % (0-10); Lymphocytes 10 % (21-51); Monocytes 3 % (0-10); Neutrophil 49 % (42-75); Platelet Adequacy Comment Platelets Normal; Polychromasia SLIGHT = 2-3 cells HPF (0-2); Reactive Lymphocytes 1 % (0-10); Total Cell Count 103
[2023-01-26] MEDS ORDERED: Ondansetron PF 4 MG/2 ML Vial IVP PRN ×2 (06:45→08:21)
[2023-01-26] MEDS ORDERED: Acetaminophen 325 MG TAB PO PRN ×2 (06:45→08:21)
[2023-01-26] MEDS ORDERED: Ondansetron ODT 4 MG TAB SL PRN (06:45)
[2023-01-26] MEDS ORDERED: Vancomycin 1 GM/200 ML (FROZEN) BAG ONE (07:49)
[2023-01-26] MEDS ORDERED: VANC/ABX IVPB PRN (08:20)
[2023-01-26] MEDS ORDERED: cefTRIAXone\\ROCEPHIN 1 GM in Sodium Chloride 0.9% 100 ML IVPB SCH (08:30)
[2023-01-26] MEDS: Sodium Chloride 0.9% 1,000 ML IV SCH ×2 (08:44→14:04)
[2023-01-26] MEDS ORDERED: Vancomycin 1 GM in Premix 1 BAG IVPB SCH (09:00)
[2023-01-26] MEDS ORDERED: Piperacillin/Tazobactam 3.375 GM in Sodium Chloride 0.9% 100 ML IVPB SCH (09:00)
[2023-01-26 09:34] VITALS: BMI 27.3
[2023-01-26] MEDS: Aspirin 81 mg Enteric Coated Tablet PO SCH (10:15)
[2023-01-26] MEDS: Losartan 25 MG TAB PO SCH ×2 (10:15→20:36)
[2023-01-26] MEDS: levETIRAcetam 500 mg/5 ml Oral Solution PO SCH ×2 (10:15→20:36)
[2023-01-26] MEDS: Cyanocobalamin (Vitamin B-12) 1,000 MCG TAB PO SCH (10:15)
[2023-01-26] MEDS: Piperacillin/Tazobactam 3.375 GM in Sodium Chloride 0.9% 100 ML IVPB SCH ×2 (14:03→21:46)
[2023-01-26] MEDS ORDERED: FLU VACC QS2023(65UP)/MF59C/PF 60 MCG/0.5 ML SYRINGE IM ONE (18:00)
[2023-01-26] MEDS: Vancomycin HCl 750 MG in Sodium Chloride 0.9% 250 ML 250 ML IVPB SCH (20:35)
[2023-01-26] MEDS: Zinc Sulfate 220 MG CAP PO SCH (20:36)
[2023-01-26] MEDS: risperiDONE 0.25 MG TAB PO SCH (20:36)
[2023-01-26] MEDS ORDERED: Amlodipine 5 MG TAB PO SCH (21:00)
[2023-01-27] MEDS: Piperacillin/Tazobactam 3.375 GM in Sodium Chloride 0.9% 100 ML IVPB SCH ×3 (04:58→22:54)
[2023-01-27] MEDS: Levothyroxine Sodium 75 MCG TAB PO SCH (04:58)
[2023-01-27 06:11] LABS: #Eosinphils 1.5 thou/uL (0.0-0.7); #Monocytes 0.7 thou/uL (0.11-0.59); #Neutrophils 5.1 thou/uL (1.40-6.50); %Basophils 0.5 % (0.0-1.0); %Eosinophils 17.1 % (0.0-10.0); %Lymphocytes 15.6 % (21.0-51.0); %Monocytes 7.9 % (0.0-10.0); %Neutrophils 58.6 % (42.0-75.0); Hematocrit 37.3 % (36.0-47.0); Mean Corpuscular HGB CONC 32.2 g/dL (32.0-36.0); Mean Corpuscular Hemoglobin 30.3 pg (27.0-31.0); Mean Corpuscular Volume 94.2 fl (78.0-98.0); Mean Platelet Volume 10.8 fL (7.4-10.4); Platelet Count 139 10x3/uL (130-400); RBC Distribution Width 13.4 % (11.5-14.5); Red Blood Cell (RBC) Count 3.96 mill/uL (4.20-5.40); White Blood Cell (WBC) Count 8.7 10x3/uL (4.8-10.8)
[2023-01-27 06:43] LABS: ALT (SGPT) 443 U/L (8-55); AST (SGOT) 102 U/L (5-34); Albumin 3.1 g/dL (3.4-4.8); Alkaline Phosphatase 231 U/L (40-110); Anion Gap 12 mmol/L (10-20); BUN (Urea Nitrogen) 15 mg/dL (9.8-20.1); Bilirubin, Total 0.5 mg/dL (0.2-1.2); Calc. Creatinine Clearance 92 mL/min (70-130); Calcium 8.7 mg/dL (7.8-10.44); Carbon Dioxide 24 mmol/L (23-31); Chloride 107 mmol/L (98-107); Estimated GFR 92; Globulin 2.6 g/dL (2.4-3.5); Glucose 69 mg/dL (83-110); Potassium 4.1 mmol/L (3.5-5.1); Protein, Total 5.7 g/dL (5.8-8.1); Sodium 139 mmol/L (136-145)
[2023-01-27] MEDS: Vancomycin HCl 750 MG in Sodium Chloride 0.9% 250 ML 250 ML IVPB SCH ×2 (08:26→20:47)
[2023-01-27] MEDS: Ferrous Sulfate 325 MG TAB PO SCH (08:29)
[2023-01-27] MEDS: Losartan 25 MG TAB PO SCH (08:29)
[2023-01-27] MEDS: levETIRAcetam 500 mg/5 ml Oral Solution PO SCH ×2 (08:29→20:33)
[2023-01-27] MEDS: Aspirin 81 mg Enteric Coated Tablet PO SCH (08:29)
[2023-01-27] MEDS ORDERED: Mineral Oil ENEMA PR SCH (12:15)
[2023-01-27 19:46] LABS: Vancomycin, Trough 6.2 ug/mL
[2023-01-27] MEDS: Benzonatate 100 MG CAP PO SCH (20:33)
[2023-01-27] MEDS: Amlodipine 5 MG TAB PO SCH (20:33)
[2023-01-27] MEDS: guaiFENesin ER 600 MG TAB PO SCH (20:33)
[2023-01-27] MEDS: risperiDONE 0.25 MG TAB PO SCH (20:34)
[2023-01-27] MEDS: Zinc Sulfate 220 MG CAP PO SCH (20:34)
[2023-01-27] MEDS: Metoprolol Tartrate 25 MG TAB PO SCH (20:34)
[2023-01-27] MEDS: Vancomycin (BATCH) 1.25 GM in Premix 1 BAG IVPB SCH (20:48)
[2023-01-28] MEDS: Levothyroxine Sodium 75 MCG TAB PO SCH (05:24)
[2023-01-28] MEDS: Piperacillin/Tazobactam 3.375 GM in Sodium Chloride 0.9% 100 ML IVPB SCH ×3 (05:24→21:04)
[2023-01-28 06:47] LABS: Hematocrit 33.4 % (36.0-47.0); Hemoglobin 10.9 g/dL (12.0-16.0); Manual Diff?? YES; Mean Corpuscular HGB CONC 32.6 g/dL (32.0-36.0); Mean Corpuscular Hemoglobin 30.4 pg (27.0-31.0); Mean Platelet Volume 11.1 fL (7.4-10.4); Platelet Count 149 10x3/uL (130-400); RBC Distribution Width 13.5 % (11.5-14.5); Red Blood Cell (RBC) Count 3.59 mill/uL (4.20-5.40)
[2023-01-28 06:50] LABS: Delete Auto Diff?? YES
[2023-01-28 07:09] LABS: ALT (SGPT) 270 U/L (8-55); AST (SGOT) 63 U/L (5-34); Albumin 2.9 g/dL (3.4-4.8); Alkaline Phosphatase 218 U/L (40-110); Anion Gap 12 mmol/L (10-20); BUN (Urea Nitrogen) 18 mg/dL (9.8-20.1); Bilirubin, Total 0.5 mg/dL (0.2-1.2); Calc. Creatinine Clearance 91 mL/min (70-130); Calcium 8.6 mg/dL (7.8-10.44); Carbon Dioxide 24 mmol/L (23-31); Chloride 105 mmol/L (98-107); Estimated GFR 92; Globulin 2.4 g/dL (2.4-3.5); Glucose 69 mg/dL (83-110); Protein, Total 5.3 g/dL (5.8-8.1); Sodium 137 mmol/L (136-145)
[2023-01-28 07:22] LABS: HBCM Index 0.07 S/CO (0-0.79); Hep A IgM AB Non-Reactive S/CO (NonReactive); Hep A IgM S/CO 0.19 S/CO (0-0.79); Hep B Surf Ag Non-Reactive S/CO (NonReactive); Hep C IgG Ab Non-Reactive S/CO (NonReactive); Hep C Index 0.07 S/CO (0-0.79); Hepatitis B Core IgM Abs Non-Reactive S/CO (NonReactive)
[2023-01-28 07:28] LABS: Anisocytosis SLIGHT = 6-15 cells HPF (0-5); Band 3 % (5-11); Burr Cells SLIGHT = 2-5 cells HPF (0-1); CellaVision Operator ID lab.dlt; Eosinophils 19 % (0-10); Hypochromia SLIGHT = 6-15 cells HPF (0-5); Large Platelets 4.7 % (0-5); Lymphocytes 21 % (21-51); Monocytes 10 % (0-10); Neutrophil 47 % (42-75); Platelet Adequacy Comment Platelets Normal; Poikilocytosis SLIGHT = 6-15 cells HPF (0-5); Total Cell Count 106
[2023-01-28] MEDS: Vancomycin (BATCH) 1.25 GM in Premix 1 BAG IVPB SCH ×2 (08:05→20:59)
[2023-01-28] MEDS: levETIRAcetam 500 mg/5 ml Oral Solution PO SCH ×2 (08:07→20:48)
[2023-01-28] MEDS: Benzonatate 100 MG CAP PO SCH ×3 (08:07→20:48)
[2023-01-28] MEDS: Aspirin 81 mg Enteric Coated Tablet PO SCH (08:07)
[2023-01-28] MEDS: Metoprolol Tartrate 25 MG TAB PO SCH ×2 (08:07→20:48)
[2023-01-28] MEDS: Amlodipine 5 MG TAB PO SCH ×2 (08:07→20:49)
[2023-01-28] MEDS: guaiFENesin ER 600 MG TAB PO SCH ×2 (08:08→20:49)
[2023-01-28] MEDS: Cyanocobalamin (Vitamin B-12) 1,000 MCG TAB PO SCH (08:08)
[2023-01-28] MEDS ORDERED: Fleet Saline Enema 133 ML BOT PR SCH (13:00)
[2023-01-28] MEDS: Zinc Sulfate 220 MG CAP PO SCH (20:48)
[2023-01-28] MEDS: risperiDONE 0.25 MG TAB PO SCH (20:48)
[2023-01-29] MEDS: Piperacillin/Tazobactam 3.375 GM in Sodium Chloride 0.9% 100 ML IVPB SCH ×3 (05:08→21:10)
[2023-01-29] MEDS: Levothyroxine Sodium 75 MCG TAB PO SCH (05:09)
[2023-01-29 07:47] LABS: Hematocrit 36.8 % (36.0-47.0); Manual Diff?? YES; Mean Corpuscular HGB CONC 32.6 g/dL (32.0-36.0); Mean Corpuscular Volume 95.1 fl (78.0-98.0); Mean Platelet Volume 10.6 fL (7.4-10.4); Platelet Count 154 10x3/uL (130-400); RBC Distribution Width 13.6 % (11.5-14.5); Red Blood Cell (RBC) Count 3.87 mill/uL (4.20-5.40)
[2023-01-29 08:04] LABS: ALT (SGPT) 291 U/L (8-55); AST (SGOT) 125 U/L (5-34); Alkaline Phosphatase 237 U/L (40-110); Anion Gap 11 mmol/L (10-20); BUN (Urea Nitrogen) 17 mg/dL (9.8-20.1); Bilirubin, Total 0.4 mg/dL (0.2-1.2); Calc. Creatinine Clearance 87 mL/min (70-130); Carbon Dioxide 25 mmol/L (23-31); Chloride 103 mmol/L (98-107); Estimated GFR 87; Globulin 2.7 g/dL (2.4-3.5); Glucose 68 mg/dL (83-110); Potassium 4.1 mmol/L (3.5-5.1); Protein, Total 5.7 g/dL (5.8-8.1); Sodium 135 mmol/L (136-145)
[2023-01-29 08:12] LABS: Delete Auto Diff?? YES
[2023-01-29 08:21] LABS: Vancomycin, Trough 18.8 ug/mL
[2023-01-29 08:48] LABS: Burr Cells SLIGHT = 2-5 cells HPF (0-1); CellaVision Operator ID LAB.NR; Eosinophils 37 % (0-10); Large Platelets 0.9 % (0-5); Lymphocytes 17 % (21-51); Macrocytosis SLIGHT = 6-15 cells HPF (0-5); Monocytes 6 % (0-10); Neutrophil 38 % (42-75); Platelet Adequacy Comment Platelets Normal; Poikilocytosis SLIGHT = 6-15 cells HPF (0-5); Polychromasia SLIGHT = 2-3 cells HPF (0-2); Schistocytes SLIGHT = 2-5 cells HPF (0-1); Smudge Cells 18.7 %; Total Cell Count 107; Vacuoles SLIGHT
[2023-01-29] MEDS: Amlodipine 5 MG TAB PO SCH ×2 (09:05→20:01)
[2023-01-29] MEDS: Metoprolol Tartrate 25 MG TAB PO SCH ×2 (09:05→20:01)
[2023-01-29] MEDS: levETIRAcetam 500 mg/5 ml Oral Solution PO SCH ×2 (09:05→20:01)
[2023-01-29] MEDS: Aspirin 81 mg Enteric Coated Tablet PO SCH (09:05)
[2023-01-29] MEDS: guaiFENesin ER 600 MG TAB PO SCH ×2 (09:05→20:01)
[2023-01-29] MEDS: Benzonatate 100 MG CAP PO SCH ×3 (09:05→20:01)
[2023-01-29] MEDS: Vancomycin (BATCH) 1.25 GM in Premix 1 BAG IVPB SCH ×2 (10:28→20:01)
[2023-01-29] MEDS: risperiDONE 0.25 MG TAB PO SCH (20:01)
[2023-01-29] MEDS: Zinc Sulfate 220 MG CAP PO SCH (20:01)
[2023-01-30] MEDS: Levothyroxine Sodium 75 MCG TAB PO SCH (05:30)
[2023-01-30] MEDS: Piperacillin/Tazobactam 3.375 GM in Sodium Chloride 0.9% 100 ML IVPB SCH ×3 (05:31→21:48)
[2023-01-30] MEDS: Metoprolol Tartrate 25 MG TAB PO SCH ×2 (08:42→20:41)
[2023-01-30] MEDS: Benzonatate 100 MG CAP PO SCH ×3 (08:42→20:41)
[2023-01-30] MEDS: Aspirin 81 mg Enteric Coated Tablet PO SCH (08:43)
[2023-01-30] MEDS: levETIRAcetam 500 mg/5 ml Oral Solution PO SCH ×2 (08:43→20:42)
[2023-01-30] MEDS: Amlodipine 5 MG TAB PO SCH ×2 (08:43→20:42)
[2023-01-30] MEDS: Ferrous Sulfate 325 MG TAB PO SCH (08:43)
[2023-01-30] MEDS: Cyanocobalamin (Vitamin B-12) 1,000 MCG TAB PO SCH (08:43)
[2023-01-30] MEDS: guaiFENesin ER 600 MG TAB PO SCH ×2 (08:43→20:41)
[2023-01-30 09:11] LABS: Hematocrit 35.4 % (36.0-47.0); Hemoglobin 11.7 g/dL (12.0-16.0); Manual Diff?? YES; Mean Corpuscular HGB CONC 33.1 g/dL (32.0-36.0); Mean Corpuscular Hemoglobin 30.5 pg (27.0-31.0); Mean Corpuscular Volume 92.2 fl (78.0-98.0); Mean Platelet Volume 10.9 fL (7.4-10.4); Platelet Count 169 10x3/uL (130-400); RBC Distribution Width 13.6 % (11.5-14.5); Red Blood Cell (RBC) Count 3.84 mill/uL (4.20-5.40)
[2023-01-30 09:19] LABS: Delete Auto Diff?? YES
[2023-01-30 09:41] LABS: ALT (SGPT) 205 U/L (8-55); AST (SGOT) 65 U/L (5-34); Alkaline Phosphatase 207 U/L (40-110); Anion Gap 11 mmol/L (10-20); BUN (Urea Nitrogen) 16 mg/dL (9.8-20.1); Bilirubin, Total 0.3 mg/dL (0.2-1.2); Calc. Creatinine Clearance 92 mL/min (70-130); Calcium 8.8 mg/dL (7.8-10.44); Carbon Dioxide 26 mmol/L (23-31); Chloride 104 mmol/L (98-107); Estimated GFR 92; Globulin 2.6 g/dL (2.4-3.5); Glucose 78 mg/dL (83-110); Iron 74 ug/dL (50-170); Iron Binding Capacity, Total 184 mcg/dL (265-497); Potassium 3.9 mmol/L (3.5-5.1); Protein, Total 5.6 g/dL (5.8-8.1); Sodium 137 mmol/L (136-145)
[2023-01-30 09:47] LABS: Immunoglob - A (Total IgA) 191 mg/dL (69-517); Immunoglob - G (Total IgG) 1100 mg/dL (552-1631); Immunoglob - M (Total IgM) 112 mg/dL (33-293)
[2023-01-30 10:08] LABS: Band 4 % (5-11); Burr Cells SLIGHT = 2-5 cells HPF (0-1); CellaVision Operator ID LAB.GE; Eosinophils 37 % (0-10); Large Platelets 0.9 % (0-5); Lymphocytes 15 % (21-51); Metamyelocyte 2 % (0-0); Monocytes 8 % (0-10); Neutrophil 33 % (42-75); Platelet Adequacy Comment Platelets Normal; Polychromasia SLIGHT = 2-3 cells HPF (0-2); Reflex for Review?? YES; Total Cell Count 106
[2023-01-30] MEDS: Vancomycin (BATCH) 1.25 GM in Premix 1 BAG IVPB SCH ×2 (12:47→22:19)
[2023-01-30] MEDS ORDERED: Bisacodyl 10 MG SUPP PR SCH (14:00)
[2023-01-30] MEDS ORDERED: Milk Of Magnesia 30 ML UDCUP PO SCH (16:15)
[2023-01-30] MEDS ORDERED: Mineral Oil ENEMA PR SCH (16:15)
[2023-01-30] MEDS: Milk Of Magnesia 30 ML UDCUP PO SCH (16:26)
[2023-01-30] MEDS: Fleet Saline Enema 133 ML BOT PR SCH (18:31)
[2023-01-30] MEDS: Zinc Sulfate 220 MG CAP PO SCH (20:41)
[2023-01-30] MEDS: risperiDONE 0.25 MG TAB PO SCH (20:41)
[2023-01-31] MEDS: Fleet Saline Enema 133 ML BOT PR SCH ×3 (04:24→17:17)
[2023-01-31 05:02] LABS: Hematocrit 35.8 % (36.0-47.0); Hemoglobin 11.7 g/dL (12.0-16.0); Manual Diff?? YES; Mean Corpuscular HGB CONC 32.7 g/dL (32.0-36.0); Mean Corpuscular Hemoglobin 30.4 pg (27.0-31.0); Mean Platelet Volume 10.8 fL (7.4-10.4); Platelet Count 158 10x3/uL (130-400); RBC Distribution Width 13.6 % (11.5-14.5); Red Blood Cell (RBC) Count 3.85 mill/uL (4.20-5.40)
[2023-01-31 05:08] LABS: Delete Auto Diff?? YES
[2023-01-31 05:36] LABS: ALT (SGPT) 156 U/L (8-55); AST (SGOT) 46 U/L (5-34); Albumin 2.8 g/dL (3.4-4.8); Alkaline Phosphatase 181 U/L (40-110); Anion Gap 13 mmol/L (10-20); BUN (Urea Nitrogen) 14 mg/dL (9.8-20.1); Bilirubin, Total 0.3 mg/dL (0.2-1.2); Calc. Creatinine Clearance 97 mL/min (70-130); Calcium 8.6 mg/dL (7.8-10.44); Carbon Dioxide 26 mmol/L (23-31); Chloride 104 mmol/L (98-107); Estimated GFR 93; Globulin 2.8 g/dL (2.4-3.5); Glucose 65 mg/dL (83-110); Potassium 3.8 mmol/L (3.5-5.1); Protein, Total 5.6 g/dL (5.8-8.1); Sodium 139 mmol/L (136-145)
[2023-01-31] MEDS: Levothyroxine Sodium 75 MCG TAB PO SCH (05:40)
[2023-01-31] MEDS: Piperacillin/Tazobactam 3.375 GM in Sodium Chloride 0.9% 100 ML IVPB SCH ×2 (05:40→14:46)
[2023-01-31 05:50] LABS: Band 8 % (5-11); CellaVision Operator ID LAB.CLH1; Eosinophils 45 % (0-10); Hypochromia SLIGHT = 6-15 cells HPF (0-5); Lymphocytes 8 % (21-51); Monocytes 7 % (0-10); Neutrophil 33 % (42-75); Nucleated RBC (Manual Ct) 2 % (0); Platelet Adequacy Comment Platelets Increased; Polychromasia SLIGHT = 2-3 cells HPF (0-2); Total Cell Count 104
[2023-01-31] MEDS: guaiFENesin ER 600 MG TAB PO SCH ×2 (08:58→20:32)
[2023-01-31] MEDS: Metoprolol Tartrate 25 MG TAB PO SCH ×2 (08:58→20:31)
[2023-01-31] MEDS: levETIRAcetam 500 mg/5 ml Oral Solution PO SCH ×2 (08:58→20:31)
[2023-01-31] MEDS: Benzonatate 100 MG CAP PO SCH ×3 (08:58→20:32)
[2023-01-31] MEDS: Aspirin 81 mg Enteric Coated Tablet PO SCH (08:58)
[2023-01-31] MEDS: Amlodipine 5 MG TAB PO SCH ×2 (08:58→20:32)
[2023-01-31] MEDS: Milk Of Magnesia 30 ML UDCUP PO SCH (08:59)
[2023-01-31] MEDS: Polyethylene Glycol 3350 17 GM Packet PO SCH (08:59)
[2023-01-31] MEDS: Vancomycin 1 GM in Premix 1 BAG IVPB SCH ×2 (08:59→11:16)
[2023-01-31 12:33] LABS: ANA Symphony (Qualitative) Negative (Negative); ANA Symphony (Quantitative) 0.3 Ratio (< 0.7 Negative); EliA Vaculitis New Method **** NEW METHOD ****; Mitochondrial Ab 1.3 U/mL (<4 Negative)
[2023-01-31] MEDS: AMOXicillin 250 MG CAP PO SCH (20:31)
[2023-01-31] MEDS: Zinc Sulfate 220 MG CAP PO SCH (20:32)
[2023-01-31] MEDS: risperiDONE 0.25 MG TAB PO SCH (20:32)
[2023-02-01] MEDS: Levothyroxine Sodium 75 MCG TAB PO SCH (05:56)
[2023-02-01 06:33] LABS: Hematocrit 33.6 % (36.0-47.0); Hemoglobin 11.1 g/dL (12.0-16.0); Manual Diff?? YES; Mean Corpuscular Hemoglobin 31.2 pg (27.0-31.0); Mean Corpuscular Volume 94.4 fl (78.0-98.0); Mean Platelet Volume 10.5 fL (7.4-10.4); Platelet Count 163 10x3/uL (130-400); RBC Distribution Width 13.6 % (11.5-14.5); Red Blood Cell (RBC) Count 3.56 mill/uL (4.20-5.40); White Blood Cell (WBC) Count 14.6 10x3/uL (4.8-10.8)
[2023-02-01 06:37] LABS: Delete Auto Diff?? YES
[2023-02-01 06:38] LABS: ALT (SGPT) 109 U/L (8-55); AST (SGOT) 26 U/L (5-34); Albumin 2.9 g/dL (3.4-4.8); Alkaline Phosphatase 159 U/L (40-110); Anion Gap 13 mmol/L (10-20); BUN (Urea Nitrogen) 16 mg/dL (9.8-20.1); Bilirubin, Total 0.3 mg/dL (0.2-1.2); Calc. Creatinine Clearance 97 mL/min (70-130); Calcium 8.4 mg/dL (7.8-10.44); Carbon Dioxide 26 mmol/L (23-31); Chloride 104 mmol/L (98-107); Estimated GFR 93; Globulin 2.7 g/dL (2.4-3.5); Glucose 74 mg/dL (83-110); Potassium 3.8 mmol/L (3.5-5.1); Protein, Total 5.6 g/dL (5.8-8.1); Sodium 139 mmol/L (136-145)
[2023-02-01] MEDS: Fleet Saline Enema 133 ML BOT PR SCH ×2 (06:42→09:09)
[2023-02-01 07:05] LABS: Band 4 % (5-11); CellaVision Operator ID LAB.GE; Eosinophils 45 % (0-10); Large Platelets 0.9 % (0-5); Lymphocytes 14 % (21-51); Monocytes 8 % (0-10); Myelocyte 2 % (0-0); Neutrophil 24 % (42-75); Platelet Adequacy Comment Platelets Normal; Polychromasia SLIGHT = 2-3 cells HPF (0-2); Reactive Lymphocytes 3 % (0-10); Total Cell Count 111
[2023-02-01] MEDS: Amlodipine 5 MG TAB PO SCH ×2 (09:08→21:24)
[2023-02-01] MEDS: Benzonatate 100 MG CAP PO SCH ×3 (09:08→21:24)
[2023-02-01] MEDS: Cyanocobalamin (Vitamin B-12) 1,000 MCG TAB PO SCH (09:08)
[2023-02-01] MEDS: Aspirin 81 mg Enteric Coated Tablet PO SCH (09:08)
[2023-02-01] MEDS: Metoprolol Tartrate 25 MG TAB PO SCH ×2 (09:09→21:23)
[2023-02-01] MEDS: guaiFENesin ER 600 MG TAB PO SCH ×2 (09:09→21:24)
[2023-02-01] MEDS: Polyethylene Glycol 3350 17 GM Packet PO SCH (09:09)
[2023-02-01] MEDS: levETIRAcetam 500 mg/5 ml Oral Solution PO SCH ×2 (09:09→21:24)
[2023-02-01] MEDS: AMOXicillin 250 MG CAP PO SCH ×3 (09:25→21:23)
[2023-02-01] MEDS ORDERED: Iopamidol-370 76% 500 ML MDV (1 ML CHARGE) ONE (10:42)
[2023-02-01] MEDS: Bisacodyl 10 MG SUPP PR SCH (15:37)
[2023-02-01 18:30] LABS: Bacteria/HPF 4+ HPF (None Seen); Bilirubin Negative (Negative); Blood, Urine Trace (Negative); CAUTI Indications for Culture Alt mental st,lethar; Clarity Turbid (Clear); Glucose, Urine (Dipstick) Normal (Negative); Ketone, Urine Negative (Negative); Leukocyte 75 Leu/uL (Negative); Nitrite Negative (Negative); Protein, Urine (Dipstick) Negative (Neg-Trace); RBC/HPF 0-3 HPF (0-3); Specific Gravity, Urine 1.015 (1.002-1.036); Squamous Epithelial 0-3 HPF (0-3); Urobilinogen Normal mg/dL (Less than 2)
[2023-02-01 18:32] LABS: Urine Culture Reflex No No
[2023-02-01] MEDS ORDERED: Polyethylene Glycol 3350 17 GM Packet PO SCH (21:00)
[2023-02-01] MEDS: Zinc Sulfate 220 MG CAP PO SCH (21:23)
[2023-02-01] MEDS: risperiDONE 0.25 MG TAB PO SCH (21:24)
[2023-02-02] MEDS: Levothyroxine Sodium 75 MCG TAB PO SCH (05:49)
[2023-02-02 06:12] LABS: Hematocrit 29.9 % (36.0-47.0); Hemoglobin 9.9 g/dL (12.0-16.0); Manual Diff?? YES; Mean Corpuscular HGB CONC 33.1 g/dL (32.0-36.0); Mean Corpuscular Hemoglobin 31.3 pg (27.0-31.0); Mean Corpuscular Volume 94.6 fl (78.0-98.0); Mean Platelet Volume 10.4 fL (7.4-10.4); Platelet Count 155 10x3/uL (130-400); RBC Distribution Width 13.7 % (11.5-14.5); Red Blood Cell (RBC) Count 3.16 mill/uL (4.20-5.40); White Blood Cell (WBC) Count 15.4 10x3/uL (4.8-10.8)
[2023-02-02 06:33] LABS: Anion Gap 10 mmol/L (10-20); BUN (Urea Nitrogen) 17 mg/dL (9.8-20.1); Calc. Creatinine Clearance 103 mL/min (70-130); Calcium 8.2 mg/dL (7.8-10.44); Carbon Dioxide 29 mmol/L (23-31); Chloride 103 mmol/L (98-107); Estimated GFR 95; Glucose 74 mg/dL (83-110); Potassium 3.9 mmol/L (3.5-5.1); Sodium 138 mmol/L (136-145)
[2023-02-02 06:35] LABS: Delete Auto Diff?? YES
[2023-02-02 07:25] LABS: Band 4 % (5-11); CellaVision Operator ID LAB.GE; Eosinophils 48 % (0-10); Large Platelets 2.8 % (0-5); Lymphocytes 10 % (21-51); Monocytes 5 % (0-10); Neutrophil 32 % (42-75); Other Cell Types 0.9; Platelet Adequacy Comment Platelets Normal; Polychromasia SLIGHT = 2-3 cells HPF (0-2); Total Cell Count 106
[2023-02-02] MEDS: Amlodipine 5 MG TAB PO SCH ×2 (09:34→21:06)
[2023-02-02] MEDS: Aspirin 81 mg Enteric Coated Tablet PO SCH (09:35)
[2023-02-02] MEDS: guaiFENesin ER 600 MG TAB PO SCH ×2 (09:35→21:07)
[2023-02-02] MEDS: Metoprolol Tartrate 25 MG TAB PO SCH ×2 (09:35→21:06)
[2023-02-02] MEDS: Polyethylene Glycol 3350 17 GM Packet PO SCH (09:35)
[2023-02-02] MEDS: Bisacodyl 10 MG SUPP PR SCH (09:35)
[2023-02-02] MEDS: levETIRAcetam 500 mg/5 ml Oral Solution PO SCH ×2 (09:35→21:07)
[2023-02-02] MEDS: Benzonatate 100 MG CAP PO SCH ×3 (09:35→21:07)
[2023-02-02] MEDS: risperiDONE 0.25 MG TAB PO SCH (21:06)
[2023-02-02] MEDS: Zinc Sulfate 220 MG CAP PO SCH (21:06)
[2023-02-03] MEDS: Levothyroxine Sodium 75 MCG TAB PO SCH (05:32)
[2023-02-03 07:24] VITALS: BP 126/62; TEMP 97.8
[2023-02-03] MEDS: Metoprolol Tartrate 25 MG TAB PO SCH (09:11)
[2023-02-03] MEDS: Aspirin 81 mg Enteric Coated Tablet PO SCH (09:11)
[2023-02-03] MEDS: guaiFENesin ER 600 MG TAB PO SCH (09:11)
[2023-02-03] MEDS: Amlodipine 5 MG TAB PO SCH (09:11)
[2023-02-03] MEDS: Cyanocobalamin (Vitamin B-12) 1,000 MCG TAB PO SCH (09:11)
[2023-02-03] MEDS: Bisacodyl 10 MG SUPP PR SCH (09:12)
[2023-02-03] MEDS: Benzonatate 100 MG CAP PO SCH (09:12)
[2023-02-03] MEDS: levETIRAcetam 500 mg/5 ml Oral Solution PO SCH (09:12)
[2023-02-03] MEDS: Polyethylene Glycol 3350 17 GM Packet PO SCH (09:12)
[2023-02-03 11:26] LABS: Hematocrit 31.9 % (36.0-47.0); Hemoglobin 10.6 g/dL (12.0-16.0); Manual Diff?? YES; Mean Corpuscular HGB CONC 33.2 g/dL (32.0-36.0); Mean Corpuscular Volume 93.3 fl (78.0-98.0); Mean Platelet Volume 10.9 fL (7.4-10.4); Platelet Count 198 10x3/uL (130-400); RBC Distribution Width 13.7 % (11.5-14.5); Red Blood Cell (RBC) Count 3.42 mill/uL (4.20-5.40); White Blood Cell (WBC) Count 14.1 10x3/uL (4.8-10.8)
[2023-02-03 11:45] LABS: Anion Gap 11 mmol/L (10-20); BUN (Urea Nitrogen) 19 mg/dL (9.8-20.1); Calc. Creatinine Clearance 97 mL/min (70-130); Calcium 8.3 mg/dL (7.8-10.44); Carbon Dioxide 28 mmol/L (23-31); Chloride 101 mmol/L (98-107); Estimated GFR 93; Glucose 103 mg/dL (83-110); Potassium 3.7 mmol/L (3.5-5.1); Sodium 136 mmol/L (136-145)
[2023-02-03 12:02] LABS: Delete Auto Diff?? YES
[2023-02-03 13:06] LABS: Band 5 % (5-11); Eosinophils 42 % (0-10); Lymphocytes 16 % (21-51); Monocytes 9 % (0-10); Neutrophil 26 % (42-75); Platelet Adequacy Comment Platelets Normal; Reactive Lymphocytes 1 % (0-10); Schistocytes SLIGHT = 2-5 cells HPF (0-1); Total Cell Count 100
== END 2023-02-03 15:24 | disposition home health service (06) | DRG 871 ==
LOC: ERS 03:03 → SUATTDRO 03:03 → T4-B 08:15
PROVIDERS: ADMIT Internal Medicine; ATTEND Family Medicine
DX: A41.81 Sepsis due to Enterococcus (principal); L89.153 Pressure ulcer of sacral region, stage 3; N39.0 Urinary tract infection, site not specified; E87.1 Hypo-osmolality and hyponatremia; Z66 Do not resuscitate; I10 Essential (primary) hypertension; E03.9 Hypothyroidism, unspecified; F03.90 Unspecified dementia, unspecified severity, without behavioral disturbance, psychotic disturbance, mood disturbance, and anxiety; K59.00 Constipation, unspecified; R05.9 Cough, unspecified; R74.01 Elevation of levels of liver transaminase levels; Z79.899 Other long term (current) drug therapy; Z11.52 Encounter for screening for COVID-19; Z90.49 Acquired absence of other specified parts of digestive tract; Z74.01 Bed confinement status; Z79.82 Long term (current) use of aspirin; Z90.10 Acquired absence of unspecified breast and nipple
CPT/HCPCS: 36415; 71045; 72195; 74176; 74177; 74181; 76705; 78227; 80048; 80053; 80074; 80202; 81001; 82103; 82390; 82728; 83516; 83540; 83550; 83605; 83880; 84443; 84484; 85025; 85060; 86015; 86038; 86225; 87040; 87077; 87086; 87186; 93005; 93970; 96361; 96365; 97139; A9537; J0696; J1650; J2543; J3370; J3370-JW; J3490; J7050; Q9967